=== PATIENT | female | born 1950 | race Caucasian/White ===

== ENCOUNTER → 2019-11-13 11:14 | Outpatient (CLI) | payer MEDICARE, SELFPAY ==
--- NOTE | ~2019-11-13 | CT_ITS ---
EXAMINATION: CT sinus wo con DATE: 11/13/2019 11:36 INDICATION: Cough. Chronic sinusitis. TECHNIQUE: Computed tomography (CT) of the paranasal sinuses was performed without contrast. Iterativ e reconstruction technique was employed. Exam dose: 269.39 mGy-cm total exam DLP. COMPARISON: None FINDINGS: There is rightward deviation of the nasal septum. The nasal turbinates are symmetric and normal in size. The ostiomeatal units are patent bilaterally. There is minimal soft tissue thickening of the ethmoid septae but the paranasal sinuses and mastoid a ir cells are otherwise normally developed and aerated. Middle and inner ear apparatus appear normal b ilaterally. IMPRESSION: Rightward deviation of nasal septum Minimal soft tissue thickening of the ethmoid air cells Reviewed, dictated and finalized at [facility]. Reviewed, dictated and finalized at [facility].
== END ==
PROVIDERS: Visit Provider Allergy & Immunology
DX: J32.9 Chronic sinusitis, unspecified (principal); J34.2 Deviated nasal septum
CPT/HCPCS: 70486

== ENCOUNTER 2024-01-25 01:33 | Day surgery (SDC) | payer MEDICARE, SELFPAY ==
[2024-01-12 15:29] VITALS: BMI 26.6
--- NOTE | 2024-01-12 16:27 | PC.NURSE ---
Spoke with PATIENT regarding medication PLAVIX AND ELIQUIS. Pt. verbalizes understanding that the last dose of PLAVIX 01/19/2024 AND ELIQUIS 01/25/2024 AND IS TO START ASA 81MG PO DAILY ON 01/20/2024 and the Endoscopist will instruct them when to restart after the procedure.
[2024-01-25 08:44] VITALS: BP 153/56; PULSE 66; RESP 18; TEMP 36; O2SAT 99; BMI 25.4
[2024-01-25] MEDS: LACTATED RINGERS 1,000 ML 150 ML IV CONT (09:04)
--- NOTE | 2024-01-25 09:05 | SUR.PREOP ---
Reported to Dr. Arreola that pt is nauseated. Okayed to give 4mg zofran.
[2024-01-25] MEDS: ONDANSETRON INJ 4 MG/2 ML VIAL IV PUSH (09:09)
--- NOTE | 2024-01-25 09:52 | PM.HPGS ---
History of Present Illness History of Present Illness Consent: Risks, benefits, and alternatives have been discussed and questions answered. Patient agrees to proceed with procedure. 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 Review of Systems Review of Systems: All systems reviewed & are unremarkable except as noted in HPI and below PMFSH Past Medical History Medical History (Updated 01/25/24 @ 09:56 by Vicente Tapia MD) Abdominal pain Vascular disease of abdomen Family History Family History Other Cerebrovascular accident Family history of malignant neoplasm Social History Social History (Updated 12/21/19 @ 10:17 by Marina Tony) Smoking packs per day: 0.75 Smoking cigarettes per day: 15.0 Years smoked: 36 Smoking pack-years: 27.00 Smoking status: Former smoker Tobacco type: cigarettes Alcohol intake: current Substance use: never Substance use type: does not use Living arrangements: with family Spiritual care concerns: No Meds Home Medications and Allergies Home Medications Medication Instructions Recorded Confirmed Type acetaminophen 500 mg tablet 500 mg PO Q6H PRN Pain 12/21/19 01/25/24 History (Tylenol Extra Strength) apixaban 5 mg tablet (Eliquis) 5 mg PO BID 12/21/19 01/25/24 History atorvastatin 40 mg tablet (Lipitor) 40 mg PO DAILY 12/21/19 01/25/24 History clopidogrel 75 mg tablet 75 mg PO DAILY 12/21/19 01/25/24 History fluticasone propionate 50 1 spray intranasal DAILY 12/21/19 01/25/24 History mcg/actuation nasal spray,suspension nitroglycerin 0.4 mg sublingual 0.4 mg sublingual Q5M PRN Angina 12/21/19 01/25/24 History tablet pantoprazole 40 mg tablet,delayed 40 mg PO QAM 12/21/19 01/25/24 History release glucosamine-chondroitin 750 mg-600 2 tablet PO DAILY 01/12/24 01/25/24 History mg tablet losartan 50 mg tablet 50 mg PO DAILY 01/12/24 01/25/24 History metoprolol succinate 25 mg 25 mg PO DAILY 01/12/24 01/25/24 History tablet,extended release 24 hr topiramate 100 mg tablet 100 mg PO BID 01/12/24 01/25/24 History Allergies Allergy/AdvReac Type Severity Reaction Status Date / Time valacyclovir Allergy Intermediate Vomiting Verified 01/25/24 08:42 Vital Signs Vital Signs - 24 hr 01/25/24 08:44 Temperature 96.8 F L Pulse Rate 66 Respiratory Rate 18 Blood Pressure 153/56 H Pulse Oximetry 99 Oxygen Delivery Room Air Exam Const: General: comfortable and no acute distress HENMT: Face/Nose/Sinus: Normal nares present Eyes: General: appearance normal, both eyes and all related structures Neck: Neck: no JVD Resp: Auscultation: clear to auscultation bilaterally Cardio: Rate: regular rate Rhythm: regular rhythm GI: Inspection: non-distended GI Palp: Yes Soft to palpation Skin: General skin exam: normal color Neuro: General: gait normal Speech: normal speech Extrem: General: normal to inspection Psych: Mental Status: mental status grossly normal Assessment and Plan Assessment and plan (1) Abdominal pain: Code(s): R10.9 - Unspecified abdominal pain Status: Acute Assessment and Plan: colonoscopy (2) Vascular disease of abdomen: Code(s): I99.9 - Unspecified disorder of circulatory system Status: Acute Assessment and Plan: last CTA scan stable findings
[2024-01-25 10:18] VITALS: BP 130/35; PULSE 73; RESP 20; O2SAT 100
[2024-01-25 10:28] VITALS: BP 123/33; PULSE 70; RESP 17; O2SAT 100
[2024-01-25 10:38] VITALS: BP 128/35; PULSE 71; RESP 16; O2SAT 100
--- NOTE | 2024-01-28 13:00 | WPDANESEPPF ---
Anes - Initial Pre Proc Eval Procedure: Operation Date: 01/25/24 10:00 Proposed Procedures p Colonoscopy - Vicente Tapia MD Date/Time: 01/28/24 13:00 Surgeon: Vicente Tapia MD Pre Op Diagnosis: Abdominal pain, Diarrhea Patient Data Age: 73 Gender: F Height: 1.65 m Weight: 69.4 kg Last Vital Signs Temp 96.8 F L 01/25/24 08:44 Pulse 71 01/25/24 10:38 Resp 16 01/25/24 10:38 BP 128/35 L 01/25/24 10:38 Pulse Ox 100 01/25/24 10:38 O2 Del Method Room Air 01/25/24 10:38 Allergies Allergy/AdvReac Type Severity Reaction Status Date / Time valacyclovir Allergy Intermediate Vomiting Verified 01/25/24 08:42 Home Medications Medication Instructions Recorded Confirmed Type acetaminophen 500 mg tablet 500 mg PO Q6H PRN Pain 12/21/19 01/25/24 History (Tylenol Extra Strength) apixaban 5 mg tablet (Eliquis) 5 mg PO BID 12/21/19 01/25/24 History atorvastatin 40 mg tablet (Lipitor) 40 mg PO DAILY 12/21/19 01/25/24 History clopidogrel 75 mg tablet 75 mg PO DAILY 12/21/19 01/25/24 History fluticasone propionate 50 1 spray intranasal DAILY 12/21/19 01/25/24 History mcg/actuation nasal spray,suspension nitroglycerin 0.4 mg sublingual 0.4 mg sublingual Q5M PRN Angina 12/21/19 01/25/24 History tablet pantoprazole 40 mg tablet,delayed 40 mg PO QAM 12/21/19 01/25/24 History release glucosamine-chondroitin 750 mg-600 2 tablet PO DAILY 01/12/24 01/25/24 History mg tablet losartan 50 mg tablet 50 mg PO DAILY 01/12/24 01/25/24 History metoprolol succinate 25 mg 25 mg PO DAILY 01/12/24 01/25/24 History tablet,extended release 24 hr topiramate 100 mg tablet 100 mg PO BID 01/12/24 01/25/24 History Patient hx anesthesia problems: none Family hx anesthesia problems: none Results Review: All pre-operative results and documents have been reviewed as part of the pre-operative evaluation. [facility] Past Medical History Medical History (Updated 01/25/24 @ 09:56 by Vicente Tapia MD) Abdominal pain Vascular disease of abdomen Family History Family History Other Cerebrovascular accident Family history of malignant neoplasm Social History Social History (Updated 12/21/19 @ 10:17 by Marina Tony) Smoking packs per day: 0.75 Smoking cigarettes per day: 15.0 Years smoked: 36 Smoking pack-years: 27.00 Smoking status: Former smoker Tobacco type: cigarettes Alcohol intake: current Substance use: never Substance use type: does not use Living arrangements: with family Spiritual care concerns: No Anes - Eval Final PreProcedure Day of Procedure 01/28/24 13:00 Patient weight: normal Heart: regular rate and rhythm Lungs: clear to auscultation Airway: Mallampati scale class II Neurological: alert and oriented Last oral intake: >/= 8 hours ASA classification: III Emergent: no Anesthetic plan: proceed Anesthesia type and monitoring: general GIVS and standard monitoring Results Review: All pre-operative results and documents have been reviewed as part of the pre-operative evaluation. Informed Consent: The patient's anesthetic plan and its attendant risks and benefits were discussed with the patient/family/POA. Questions were solicited and answers provided to the satisfaction of the patient/family/POA.
== END 2024-01-25 10:50 | disposition home or self-care (01) ==
PROVIDERS: PCP Internal Medicine; Referring Provider Internal Medicine; Visit Provider Internal Medicine Gastroenterology
PROC: 0DJD8ZZ Inspection of Lower Intestinal Tract, Via Natural or Artificial Opening Endoscopic (ICD-10-PCS; CPT 45378; principal; 2024-01-25 10:00)
DX: K52.9 Noninfective gastroenteritis and colitis, unspecified (principal); K64.8 Other hemorrhoids; I99.9 Unspecified disorder of circulatory system; Z98.0 Intestinal bypass and anastomosis status; Z90.49 Acquired absence of other specified parts of digestive tract; Z79.02 Long term (current) use of antithrombotics/antiplatelets; Z95.5 Presence of coronary angioplasty implant and graft; Z87.891 Personal history of nicotine dependence; Z79.01 Long term (current) use of anticoagulants
CPT/HCPCS: 45380; 88305; J2405; J2704; J7120